=== PATIENT | female | born 1975 | race Caucasian/White ===

== ENCOUNTER 2022-03-04 07:15 | Emergency (ER) | payer SELFPAY ==
[~2022-03-04] VITALS: Ht 165 cm; Wt 61.0 kg
--- NOTE | 2022-03-04 07:40 | ED GU-Female ---
General Chief Complaint: - Reproductive Stated Complaint: BLADDER PAIN | PELVIC CRAMPING Nursing Triage Note: PT STATES HAS AREA IN VAGINA THAT IS UNCOMFORTABLE AND FEELS LIKE IS COMING OUT, STARTED ABOUT 2 WEEKS AGO AND HAS GOTTEN WORSE, PT STATE HAS BECOME INC OF URINE. Source: patient Exam Limitations: no limitations History of Present Illness Date Seen by Provider: Mar 04, 2022 Time Seen by Provider: 07:29 Initial Comments 46-year-old female presents emergency department today stating "I have something coming out of my vagina." She states she had a hysterectomy at age 22 for severe endometriosis and adhesions. About 2 weeks ago she noticed a small protrusion from her vagina. It has gotten worse and is now causing her a "stomachache." No fevers chills nausea vomiting. She does have some incontinence of urine intermittently. She does frequently have issues with constipation. Urinary and constipation issues are happening frequently. She denies any new sexual partners, vaginal discharge odor or bleeding. Allergies and Home Medications Allergies Coded Allergies: No Known Drug Allergies (Unverified , 03/04/22) Patient Home Medication List Home Medication List Reviewed: Yes Review of Systems Review of Systems Constitutional: no symptoms reported EENTM: no symptoms reported Respiratory: no symptoms reported Cardiovascular: no symptoms reported Gastrointestinal: no symptoms reported Genitourinary: other (Vaginal pain) : No Musculoskeletal: no symptoms reported Skin: no symptoms reported Psychiatric/Neurological: No Symptoms Reported Endocrine: No Symptoms Reported Hematologic/Lymphatic: No Symptoms Reported Past Vlgduyx-Piitfi-Klcpui Hx Patient Social History Tobacco Use?: Yes Substance use?: No Alcohol Use?: No Pt feels they are or have been: No Immunizations Up To Date First/Initial COVID19 Vaccinat: 2020 Second COVID19 Vaccination [place]: 2020 Past Medical History Surgery/Hospitalization HX: HYST, Family Medical History Reviewed Nursing Family Hx No Pertinent Family Hx Physical Exam Vital Signs Vital Signs - First Documented 03/04/22 07:25 Pulse 90 Resp 16 B/P (MAP) 149/72 (97) Pulse Ox 99 Capillary Refill : Less Than 3 Seconds Height, Weight, BMI Height: '" Weight: lbs. oz. kg; 22.00 BMI Method: General Appearance: WD/WN, no apparent distress HEENT: normal ENT inspection, pharynx normal Neck: non-tender, supple, normal inspection Cardiovascular: regular rate, rhythm, no murmur Respiratory: chest non-tender, lungs clear, normal breath sounds, no respiratory distress, no accessory muscle use Gastrointestinal: normal bowel sounds, non tender, soft, no organomegaly Genital/Rectal: other (External vaginal exam shows a small protrusion above vaginal tissue. Digital exam reveals this is easily reducible, nontender. It does appear to be treated from the anterior portion of the vaginal wall. There is no discharge odor or bleeding. No evidence for infection.) Pelvic: other (See above genital exam) Back: normal inspection, no CVA tenderness, no vertebral tenderness Extremities: normal range of motion, non-tender, normal inspection, no calf tenderness Neurologic/Psychiatric: alert, oriented x 3 Skin: normal color, warm/dry Progress/Results/Core Measures Suspected Sepsis SIRS Temperature: Pulse: 90 Respiratory Rate: 16 Blood Pressure 149 /72 Mean: 97 Results/Orders Vital Signs/I&O 03/04/22 07:25 Pulse 90 Resp 16 B/P (MAP) 149/72 (97) Pulse Ox 99 Capillary Refill : Less Than 3 Seconds Blood Pressure Mean: 97 Departure Communication (Admissions) Patient is hemodynamically stable. Appears to have a bladder prolapse in the anterior portion of the vaginal wall. No evidence for infection or other emergent condition. Discharged with gynecology follow-up. She is able to urinate and have bowel movements. Impression Primary Impression: Bladder prolapse, female, acquired Disposition: 01 HOME, SELF-CARE Condition: Stable Departure-Patient Inst. Referrals: IVAN MAYER DO NO,LOCAL PHYSICIAN (PCP) Primary Care Physician Patient Instructions: Cystocele and Rectocele Add. Discharge Instructions: Continue treatment as previous. Follow-up with Dr. MAYER by calling to schedule an appointment. Return to the emergency department for any severe concerns. All discharge instructions reviewed with patient and/or family. Voiced understanding. SUSIE YOUNG DO Mar 04, 2022 07:40
[2022-03-04 07:52] VITALS: BP 149/72
== END 2022-03-04 07:52 | disposition home or self-care (01) ==
LOC: ER 07:20
DX: N81.10 Cystocele, unspecified (principal)
CPT/HCPCS: 99282